=== PATIENT | male | born 1985 | race Two or more races ===

== ENCOUNTER 2017-02-15 23:49 | Inpatient (IN) | payer MEDICAID ==
[~2017-02-15] VITALS: Ht 167.6 cm; Wt 94.0 kg
[2017-02-16] VITALS (16 sets, daily range): BP systolic 115–137; BP diastolic 54–98
[2017-02-16] MEDS ORDERED: IV NS 0.9% 1,000 ML ONE (00:28)
[2017-02-16] MEDS ORDERED: ONDANSETRON HCL/PF 4 MG/2 ML VIAL ONE (00:28)
[2017-02-16] MEDS ORDERED: ONDANSETRON HCL/PF 4 MG/2 ML VIAL IVP ONE (00:30)
[2017-02-16] MEDS ORDERED: IV NS 0.9% 1,000 ML BAG IV ONE (00:30)
--- NOTE | 2017-02-16 00:30 | NUR ---
32 YO MALE BB FAMILY. PT IS ALERT X 3, C/O LIGHTHEADEDNESS, NAUSEA/ VOMIT X 2 DAYS. PT AMBULATED TO ER BED, SKN WARM AND DRY, RR EVEN AND UNLABORED. PT GOWNED, PLACED ON DICTAPHONE TRANSCRIBER. AWAITING ORDERS FROM PROVIDER, WILL CONTINUE TO MONITOR
--- NOTE | 2017-02-16 00:41 | NUR ---
20G LEFT AC IV STARTED, BLOOD SAMPLE OBNTAINED AND SENT TO LAB. MEDICATED PT ORDERED
[2017-02-16 00:46] LABS: BASOPHILS % (AUTO) 0.2 % (0.0-2.0); EOSINOPHILS % (AUTO) 0.1 % (0.0-6.0); HEMATOCRIT 21 % (39-51); HEMOGLOBIN 7.1 g/dL (13.5-17.5); LYMPHOCYTES # (AUTO) 2.7 /CMM (0.8-4.8); LYMPHOCYTES % (AUTO) 19.5 % (20.0-44.0); MEAN CORPUSCULAR HEMOGLOBIN 28 PG (26.0-33.0); MEAN CORPUSCULAR HGB CONC 33 g/dl (31.0-36.0); MEAN CORPUSCULAR VOLUME 83 fL (80-96); MONOCYTES # (AUTO) 0.6 /CMM (0.1-1.30); MONOCYTES % (AUTO) 4.1 % (2.0-12.0); NEUTROPHILS # (AUTO) 10.4 /CMM (1.8-8.9); NEUTROPHILS % (AUTO) 76.1 % (43.0-81.0); PLATELET COUNT (AUTO) 297 /CMM (150-450); RDW COEFFICIENT OF VARIATION 14.5 (11.5-15.0); RED BLOOD CELL COUNT(AUTO) 2.56 MIL/uL (4.5-6.0); WHITE BLOOD COUNT (AUTO) 13.6 K/uL (4.3-11.0)
[2017-02-16 00:48] LABS: APPEARANCE,URINE CLEAR (CLEAR); BILIRUBIN,URINE NEGATIVE (NEGATIVE); BLOOD, URINE NEGATIVE Ery/uL (NEGATIVE); COLOR,URINE YELLOW (YELLOW); KETONES,URINE NEGATIVE (NEGATIVE); LEUKOCYTE ESTERASE ,URINE NEGATIVE (NEGATIVE); NITRITE, URINE NEGATIVE (NEGATIVE); PROTEIN,URINE NEGATIVE (NEGATIVE); UGLUCOSE NEGATIVE (NEGATIVE); UROBILINOGEN,URINE 0.2 EU/dL (0.2)
[2017-02-16 00:57] LABS: CALCIUM, SERUM 8.3 mg/dL (8.5-10.1); CREATININE 1.1 mg/dL (0.6-1.3); POTASSIUM 3.1 mmol/L (3.5-5.1)
[2017-02-16 01:01] LABS: ALBUMIN 3.3 g/dL (3.4-5.0); BILIRUBIN,DIRECT 0.1 mg/dL (0.0-0.2); BILIRUBIN,TOTAL 0.3 mg/dL (0.2-1.0); TOTAL PROTEIN, SERUM 6.7 g/dL (6.4-8.2)
[2017-02-16] MEDS ORDERED: POTASSIUM CHLORIDE 20 MEQ TAB.PRT.SR PO ONE ×3 (02:18→02:30)
--- NOTE | 2017-02-16 02:19 | NUR ---
TRANSPORTED PT TO MS BED WITHOUT INCIDENT
--- NOTE | 2017-02-16 02:25 | NUR ---
RN NOTES ADMITTED A 32 YEARS OLD MALE PT FROM ER VIA [facility] ACCOMPANIED BY ER NURSE WITH PRIMARY DIAGNOSIS OF GI BLEED AND ANEMIA. PT ALERT AND ORIENTED X4, DENIES ANY PAIN AND DISCOMFORT AT THIS TIME. DENIES NAUSEA AND VOMITING. VITAL SIGNS STABLE, TEMP 99.9. ON ROOM AIR AND TOLERATED WELL. SKIN CLEAR AND INTACT. PT IS AMBULATORY WITH STEADY GAIT. AWAITING FOR ADMITTING ORDERS. PT FOR POSSIBLE BLOOD TRANSFUSION. WILL CONTINUE TO MONITOR PT.
[2017-02-16] MEDS ORDERED: BLOOD IV SET 1 EA INFUS.SET MC ONE (03:07)
[2017-02-16] MEDS ORDERED: IV NS 0.9% 250 ML IV ONE (03:08)
[2017-02-16] MEDS ORDERED: IV NS 0.9% 1,000 ML IV PRN (03:29)
[2017-02-16] MEDS ORDERED: MAG HYDROX/AL HYDROX/SIMETH 30 ML UDC PO PRN (03:30)
[2017-02-16] MEDS ORDERED: ONDANSETRON HCL/PF 4 MG/2 ML VIAL IVP PRN (03:30)
[2017-02-16] MEDS ORDERED: MAGNESIUM HYDROXIDE 30 ML UDC PO PRN (03:30)
[2017-02-16] MEDS ORDERED: ACETAMINOPHEN 325 MG TABLET PO PRN (03:30)
--- NOTE | 2017-02-16 03:33 | NUR ---
RN NOTES ADMITTING ORDERS RECEIVED. WILL PAGED MIRZA BOTELLO NP FOR CLARIFICATION OF ORDERS FOR BT.
--- NOTE | 2017-02-16 04:03 | NUR ---
RN NOTES CLERIFICATION OF ORDERS FOR BT, GIVE 2 UNITS OF PRBC ORDERED IN ER. NOTED AND CARRIED OUT.
--- NOTE | 2017-02-16 04:27 | NUR ---
RN NOTES FIRST UNIT OF PRBC STARTED, VITAL SIGNS STABLE. PT DENIES ANY DISCOMFORT. WILL CONTINUE TO MONITOR PT.
--- NOTE | 2017-02-16 07:06 | NUR ---
RN NOTES PT ASLEEP, NO SOB, NOT IN DISTRESS, ON ROOM AIR AND TOLERATED WELL. FIRST UNIT OF PRBC DONE, NO REACTION NOTED. VITAL SIGNS STABLE. NO COMPLAIN OF ANY DISCOMFORT. DENIES NAUSEA AND VOMITING. KEPT PT ON NPO. WILL ENDORSE TO MORNING RN FOR CONTINUITY OF CARE.
--- NOTE | 2017-02-16 07:10 | NUR ---
RN MS NOTES RN MS NOTES PATIENT IN BED ALERT AND ORIENTED, VERY PLEASANT, CALM AND COOPERATIVE, NO S/SX OF PAIN OR DISCOMFORT NOTED, 1ST BAG OF BLOOD TRANSFUSION COMPLETED AND TOLERATED WELL, NO ADVERSE SIDE EFFECT REPORTED, ALL NEEDS ATTENDED, CALL LIGHT WITHIN REACH, WILL CONTINUE TO MONITOR.
[2017-02-16] MEDS ORDERED: PANTOPRAZOLE 40 MG VIAL IV SCH ×2 (09:00)
[2017-02-16 09:38] LABS: MAGNESIUM 1.8 mg/dL (1.8-2.4); PHOSPHORUS 3.4 mg/dL (2.5-4.9)
[2017-02-16] MEDS: PANTOPRAZOLE 40 MG VIAL IV SCH ×2 (09:53→21:31)
--- NOTE | 2017-02-16 11:19 | NUR ---
RN MS NOTES BLOOD TRANSFUSION COMPLETED, NO ADVERSE REACTION NOTED, VITAL SIGNS STABLE, PATIENT IS ALERT AND ORIENTED, NO COMPLAINT OF PAIN OR DISCOMFORT, ALL NEEDS ATTENDED, WILL CONTINUE TO MONITOR.
[2017-02-16 12:07] LABS: IRON, SERUM 31 ug/dl (50-175); TOTAL IRON BINDING CAPACITY 333 ug/dl (250-450)
[2017-02-16] MEDS ORDERED: IV SET PRIMARY PUMP SET 1 EA INFUS.SET MC ONE (14:53)
--- NOTE | 2017-02-16 18:48 | NUR ---
RN MS NOTES PATIENT SEEN BY DR. SHARP, RELAYED X1 BLACK STOOL TODAY, MD DISCUSSED OPTIONS FOR PROCEDURE TOMORROW, GAVE OPTION TO DO EGD AND COLONOSCOPY, PATIENT AGREED TO DO BOTH TOMORROW AT NOON, RECEIVED NEW ORDERS FROM DR. SHARP TO START 1/2 GALLON OF GOLYTELY AT 8PM AND ANOTHER 1/2 GALLON AT 4AM, PATIENT VERBALIZED UNDERSTANDING. WILL BE NPO AFTER MIDNIGHT, PIV ON LEFT AC PATENT AND INTACT, IVF INFUSING AND TOLERATING WELL, ALL NEEDS ATTENDED, WILL ENDORSE TO CAN CARRIER FOR KATELYN.
--- NOTE | 2017-02-16 19:00 | NUR ---
MS RN NOTES PT RECEIVED IN BED, NO S/S OF RESPIRATORY DISTRESS OR SOB. IV SITE INTACT WITH NO S/S OF INFILTRATION NOTED. SAFE ENVIRONMENT PROVIDED FREE OF CLUTTERS .BED IN LOCKED, LOW POSITION. CALL LIGHT WITHIN EASY REACH. WILL CONTINUE TO MONITOR.
[2017-02-16] MEDS ORDERED: PEG 3350/NA SULF,BICARB,CL/KCL 4,000 ML BOTTLE PO ONE (20:00)
[2017-02-16] MEDS: MORPHINE SULFATE INJ 4 MG/ML DISP.SYRIN IV PRN (23:37)
[2017-02-17] VITALS (10 sets, daily range): BP systolic 108–135; BP diastolic 66–90
[2017-02-17] MEDS: MORPHINE SULFATE INJ 4 MG/ML DISP.SYRIN IV PRN (06:22)
--- NOTE | 2017-02-17 06:30 | NUR ---
MS RN CLOSING NOTES PATIENT COMFORTABLY ASLEEP AND EASILY AWAKEN, HEAD OF BED ELEVATED FOR BETTER LUNG EXPANSION TOLERATING ROOM AIR 98% R.A IV HYDRATION ONGOING NS AT 75 CC, IV SITE NO S/S OF INFILTRATED, PATIENT DENIES PAIN AT THIS TIME. RESPIRATIONS EVEN AND UNLABORED. LUNG SOUNDS CLEAR UPON AUSCULTATION, NO S/S OF ACUTE DISTRESS, NO SOB, NO COUGH, NO CONGESTION, SKIN WARM AND DRY TO TOUCH, AFEBRILE, ALL NURSING CARE NEEDS PROVIDED AND RENDERED, KEPT CLEAN AND DRY AND COMFORTABLE, SAFE HAZARD FREE ENVIRONMENT PROVIDED. CALL LIGHT WITHIN EASY TO REACH, ON LOW BED AT ALL TIMES TO ENSURE SAFETY, WILL ENDORSE TO THE NEXT SHIFT CONTINUE PLAN OF CARE. MAINTAINS NPO AT MIDNIGHT. PER PATIENT HE DEFECATE WATERY ALREADY.
[2017-02-17 06:39] LABS: BASOPHILS % (AUTO) 0.3 % (0.0-2.0); EOSINOPHILS % (AUTO) 0.3 % (0.0-6.0); LYMPHOCYTES # (AUTO) 3.4 /CMM (0.8-4.8); LYMPHOCYTES % (AUTO) 26.5 % (20.0-44.0); MEAN CORPUSCULAR HEMOGLOBIN 28 PG (26.0-33.0); MEAN CORPUSCULAR HGB CONC 33 g/dl (31.0-36.0); MEAN CORPUSCULAR VOLUME 84 fL (80-96); MONOCYTES # (AUTO) 0.6 /CMM (0.1-1.30); MONOCYTES % (AUTO) 4.5 % (2.0-12.0); NEUTROPHILS # (AUTO) 8.7 /CMM (1.8-8.9); NEUTROPHILS % (AUTO) 68.4 % (43.0-81.0); PLATELET COUNT (AUTO) 257 /CMM (150-450); WHITE BLOOD COUNT (AUTO) 12.8 K/uL (4.3-11.0)
[2017-02-17 06:53] LABS: CALCIUM, SERUM 7.5 mg/dL (8.5-10.1); CREATININE 1.1 mg/dL (0.6-1.3); POTASSIUM 3.7 mmol/L (3.5-5.1)
[2017-02-17 06:57] LABS: HEMATOCRIT 20 % (39-51); HEMOGLOBIN 6.7 g/dL (13.5-17.5)
--- NOTE | 2017-02-17 07:00 | NUR ---
REPORTED TO CORPORATE RECRUITER EPIC SPOKE TO MIRZA BOTELLO RECENT HGB 6.7 ORDERED 2 PRBC STAT AGAIN WILL ENDORSE TO THE NEXT SHIFT CONTINUE PLAN OF CARE FOR TRANSFUSION
[2017-02-17 07:54] LABS: BAND % (MANUAL) 1 % (0.0-5.0); LYMPHOCYTES % (MANUAL) 22 % (16-48); MONOCYTES % (MANUAL) 2 % (0-11.0); NEUTROPHILS % (MANUAL) 75 (42-76)
[2017-02-17] MEDS ORDERED: BLOOD IV SET 1 EA INFUS.SET MC ONE ×2 (08:20→13:10)
[2017-02-17] MEDS ORDERED: IV NS 0.9% 250 ML IV ONE ×2 (08:20→13:10)
[2017-02-17] MEDS: PANTOPRAZOLE 40 MG VIAL IV SCH ×2 (08:47→21:13)
--- NOTE | 2017-02-17 08:56 | NUR ---
m/s fabric cutter: notes 1st unit of prbc started at this time. mother remains at bedside. will monitor.
--- NOTE | 2017-02-17 09:16 | NUR ---
m/s diver's tender: notes no a/r noted after 15mins of blood transfusion. will continue to monitor.
--- NOTE | 2017-02-17 10:15 | NUR ---
m/s elementary school professional: notes blood still infusing without a/r noted. will monitor. pt remains npo, pending egd/colonoscopy this morning.
--- NOTE | 2017-02-17 10:40 | NUR ---
m/s hand heel seat fitter: notes inserted new iv to right forearm, gauze #[id number]. o.r. team here to take pt at this time and will assess iv site to left ac. blood still infusing without a/r noted. taken to o.r. via bed with chart. family at bedside.
[2017-02-17] MEDS ORDERED: MIDAZOLAM HCL 2 MG/2ML VIAL ONE (10:45)
--- NOTE | 2017-02-17 12:30 | NUR ---
m/s hand trucker: notes received pt from recovery room with dx: s/p egd and colonoscopy. per isabel (o.r. nurse), blood was completed at 1140am. blood bank notified and made aware. pt has diverticulitis per isabel's bedside report. family aware. will continue to monitor.
--- NOTE | 2017-02-17 12:45 | NUR ---
m/s government relations analyst: notes consent obtained from pt re: nm gastro bleed blood loss acute and verbalized understanding. verify with dr. gordon if pt can eat now, stated, "after nuclear med, then he can have regular diet." pt made aware.
--- NOTE | 2017-02-17 13:07 | NUR ---
m/s order takers supervisor: notes dr. gordon notified and made aware per melody (nuclear med tech), pt doesn't need to be npo and test will be done around 5pm with order okay to feed pt with regular diet. order carried out and acknowledged.
--- NOTE | 2017-02-17 13:38 | NUR ---
per ,patient will need higher level of care transfer for interventional radiology. Left message to Jonatan HOWE @ [facility] [phone] and Janeth HOWE @ [phone]. Addendum: 02/17/17 at 1958 by PAULA BLANCO RN Amended: Links added.
--- NOTE | 2017-02-17 13:43 | NUR ---
m/s telephone mechanic: notes 2nd unit of blood transfusion started at this time. will continue to monitor. dr. gordon at bedside and spoke to pt and family at this time.
--- NOTE | 2017-02-17 14:45 | NUR ---
sarah Khoury [facility] - is delegated for hospital transfer and approval. Spoke with Janeth HOWE @ - can refer patient to [facility] and [facility] has to provide accepting MD. Addendum: 02/17/17 at 1999 by PAULA BLANCO RN Amended: Links added.
--- NOTE | 2017-02-17 15:50 | NUR ---
per Jonatan @ [facility]- they are contracted with [facility], accepting MD will be Dr. Bob, IR can be done in am. Faxed referral to [facility] ctr abd spoke with Deidrahudson [phone], awaiting for financial clearance. Addendum: 02/17/17 at 2003 by PAULA BLANCO RN Amended: Links added.
--- NOTE | 2017-02-17 16:00 | NUR ---
m/s business economist: notes blood transfusion completed without a/r noted. family remains at bedside. instructed to call for assistance. will continue to monitor.
--- NOTE | 2017-02-17 17:00 | NUR ---
per Elsie, patient has been accepted to room# 762-1, accepting MD is Dr. Bob. Nurse to call report to [phone], [facility] is on will call, spoke with Lanette on the phone made aware. Pt is scheduled for GI bleed scan this afternoon. Family want to wait for the result of the GI Bleed scan prior transfer. Addendum: 02/17/17 at 2013 by PAULA BLANCO RN Amended: Links added.
--- NOTE | 2017-02-17 17:00 | NUR ---
m/s non morse intercept technician: notes picked up by melody (nuclear med tech) via w/c at this time.
--- NOTE | 2017-02-17 18:45 | NUR ---
m/s brine maker: kenn willis (case management) arranged for pt to transfer to [facility] on a will call. pt still in nuclear med at this time. cn aware. will monitor.
--- NOTE | 2017-02-17 19:25 | NUR ---
m/s dulser: notes gi bleed scan nm result still pending. pt and family aware. case management at bedside and answering all pt's and family's concern re: transfer to acute hospital due to higher level of care. report given to jovanny (rn) for continuity of care.
--- NOTE | 2017-02-17 19:30 | NUR ---
MS/RN NOTES PT AWAKE, SITTING IN BED. FAMILY AT BEDSIDE. STEAM FINISHER AT BEDSIDE EXPLAINING POSSIBLE TRANSFER TO ACUTE HOSPITAL FOR FURTHER DIAGNOSTIC TESTING DEPENDING ON THE RESULT OF THE NM BLEEDING SCAN. PT AND FAMILY VERBALIZING UNDERSTANDING. ON ROOM AIR, DENIES SOB OR PAIN AT THIS TIME. BREATHING EVEN AND UNLABORED. NO S/S OF DISTRESS NOTED. IV TO RFA PATENT AND INTACT. S/P 2 UNITS OF PRBC'S. PT STATES HE "FEELS GOOD". BED IN LOW/LOCKED POSITION WITH CALL LIGHT IN REACH. SIDE RAILS UPX2. WILL CONTINUE TO MONITOR
--- NOTE | 2017-02-17 20:00 | NUR ---
MS/RN NOTES MIRZA BOTELLO NP ON THE UNIT. NOTIFIED HIM OF PT'S RESULTS OF NM BLEEDING SCAN WHICH WAS NEGATIVE. PT'S FAMILY REQUESTING CBC REDRAW SINCE PT RECEIVED 2 UNITS OF PRBC. MIRZA DOES NOT WANT TO D/C PT HOME UNTIL DR. LANCE SEES PT. WILL NOT TRANSFER TO [facility] DUE TO NM SCAN BEING NEGATIVE. ORDERED STAT CBC FOR F/U WITH H/H
[2017-02-17 20:44] LABS: BASOPHILS # (AUTO) 0.1 /CMM (0.0-0.2); BASOPHILS % (AUTO) 0.4 % (0.0-2.0); EOSINOPHILS % (AUTO) 0.1 % (0.0-6.0); HEMATOCRIT 29 % (39-51); HEMOGLOBIN 9.8 g/dL (13.5-17.5); LYMPHOCYTES # (AUTO) 2.8 /CMM (0.8-4.8); LYMPHOCYTES % (AUTO) 18.7 % (20.0-44.0); MEAN CORPUSCULAR HEMOGLOBIN 29 PG (26.0-33.0); MEAN CORPUSCULAR HGB CONC 34 g/dl (31.0-36.0); MEAN CORPUSCULAR VOLUME 86 fL (80-96); MONOCYTES # (AUTO) 0.7 /CMM (0.1-1.30); MONOCYTES % (AUTO) 4.5 % (2.0-12.0); NEUTROPHILS # (AUTO) 11.7 /CMM (1.8-8.9); NEUTROPHILS % (AUTO) 76.3 % (43.0-81.0); PLATELET COUNT (AUTO) 257 /CMM (150-450); RED BLOOD CELL COUNT(AUTO) 3.42 MIL/uL (4.5-6.0); WHITE BLOOD COUNT (AUTO) 15.3 K/uL (4.3-11.0)
--- NOTE | 2017-02-17 20:58 | NUR ---
NOTIFIED [facility] SPOKE WITH [employer] TO CANCEL TRANSFER SECONDARY TO GI SCAN NEGATIVE. PATIENT FOR POSSIBLE DISCHARGE HOME.
[2017-02-17 21:26] LABS: LYMPHOCYTES % (MANUAL) 26 % (16-48)
[2017-02-17 21:29] LABS: MONOCYTES % (MANUAL) 6 % (0-11.0); NEUTROPHILS % (MANUAL) 68 (42-76)
[2017-02-17] MEDS ORDERED: ZOLPIDEM TARTRATE 5 MG TABLET ONE (23:51)
[2017-02-18] MEDS ORDERED: ZOLPIDEM TARTRATE 5 MG TABLET PO PRN
--- NOTE | 2017-02-18 | NUR ---
MS/RN NOTES PT REQUESTING SLEEPING MEDICATION. MIRZA BTOELLO ETCH OPERATOR SEMICONDUCTOR WAFERS ORDERED AMBIEN 5MG PO HS PRN SLEEP. ORDERS NOTED AND CARRIED OUT. ADMINISTERED AND WILL MONITOR FOR EFFECTIVENESS.
--- NOTE | 2017-02-18 06:43 | NUR ---
MS/RN NOTES PT AWAKE, SITTING UP IN BED. A/OX4, ON ROOM AIR, DENIES SOB OR PAIN. BREATHING EVEN AND UNLABORED. IV TO RFA PATENT AND INTACT. PT STATES AMBIEN HELPED HIM SLEEP WELL FOR A FEW HOURS DURING THE NIGHT. FAMILY REMAINS AT BEDSIDE. MADE PT COMFORTABLE THROUGHOUT SHIFT. ALL NEEDS MET AND ATTENDED. NO CHANGES OVERNIGHT. BED IN LOW/LOCKED POSITION WITH CALL LIGHT IN REACH. SIDE RAILS UPX2. WILL ENDORSE TO AM SHIFT KATELYN.
--- NOTE | 2017-02-18 07:30 | NUR ---
MS RN NOTES Received patient in bed, family at bedside. Awake, alert and oriented x 4. No acute distress, no sob noted. Denies any pain or discomfort. IV site intact and patent. Bed in low position, call light within reach. Will continue to monitor accordingly.
[2017-02-18 07:33] LABS: BASOPHILS % (AUTO) 0.2 % (0.0-2.0); EOSINOPHILS # (AUTO) 0.1 /CMM (0.0-0.7); EOSINOPHILS % (AUTO) 0.5 % (0.0-6.0); HEMATOCRIT 27 % (39-51); LYMPHOCYTES # (AUTO) 2.7 /CMM (0.8-4.8); LYMPHOCYTES % (AUTO) 22.6 % (20.0-44.0); MEAN CORPUSCULAR HEMOGLOBIN 29 PG (26.0-33.0); MEAN CORPUSCULAR HGB CONC 34 g/dl (31.0-36.0); MEAN CORPUSCULAR VOLUME 87 fL (80-96); MONOCYTES # (AUTO) 0.5 /CMM (0.1-1.30); MONOCYTES % (AUTO) 4.1 % (2.0-12.0); NEUTROPHILS # (AUTO) 8.5 /CMM (1.8-8.9); NEUTROPHILS % (AUTO) 72.6 % (43.0-81.0); PLATELET COUNT (AUTO) 239 /CMM (150-450); RDW COEFFICIENT OF VARIATION 14.8 (11.5-15.0); RED BLOOD CELL COUNT(AUTO) 3.12 MIL/uL (4.5-6.0); WHITE BLOOD COUNT (AUTO) 11.8 K/uL (4.3-11.0)
[2017-02-18 07:45] LABS: ALBUMIN 2.9 g/dL (3.4-5.0); BILIRUBIN,TOTAL 0.5 mg/dL (0.2-1.0); POTASSIUM 3.9 mmol/L (3.5-5.1); TOTAL PROTEIN, SERUM 6.1 g/dL (6.4-8.2)
[2017-02-18 08:00] VITALS: BP 124/79
[2017-02-18] MEDS: PANTOPRAZOLE 40 MG VIAL IV SCH (08:57)
[2017-02-18 10:00] VITALS: BP 124/79
[2017-02-18] MEDS ORDERED: PANT40VI IV (10:21)
[2017-02-18 13:15] VITALS: BP 112/67
--- NOTE | 2017-02-18 13:20 | NUR ---
MS RN NOTES DISCHARGE PATIENT WITH STABLE CONDITION WITH 2 AMBULANCE CREW AND FAMILY. PATIENT REFUSED TO DISCONTINUE IV. DISCHARGE TEACHING AND EXIT CARE DONE.
== END 2017-02-18 12:30 | disposition short-term general hospital (02) | DRG 253 ==
LOC: ER 23:53 → MED 02-16 02:42
PROVIDERS: ADMIT Nurse Practitioner Acute Care; ATTEND Nurse Practitioner Acute Care
DX: K92.2 Gastrointestinal hemorrhage, unspecified (principal); K76.0 Fatty (change of) liver, not elsewhere classified; F17.210 Nicotine dependence, cigarettes, uncomplicated; K42.9 Umbilical hernia without obstruction or gangrene; D50.0 Iron deficiency anemia secondary to blood loss (chronic); D62 Acute posthemorrhagic anemia
CPT/HCPCS: 36415; 72128-TC; 80048-TC; 80053-TC; 80076-TC; 81000-TC; 83540-TC; 83690-TC; 83735-TC; 84100-TC; 85025-TC; 86850-TC; 86921-TC; 87081-TC; A4606; A9560; C9113; J2250; J2270; J2405; J2704; J3490; J7030; J7050; P9016-BL; Z7610